=== PATIENT | male | born 1960 | race Caucasian/White ===

== ENCOUNTER 2025-09-19 14:17 | Outpatient (CLI) | payer MEDICARE, SELFPAY ==
--- NOTE | ~2025-09-19 | XR_ITS ---
XR lumbar spine min 4V Indication: Other mechanical complication of implanted electronic neuros Comparison: None Findings: Postsurgical changes with posterior fixation of S1, L5, L4 and L3 with anterior fixation of L5 and S1, disc prostheses are also noted, the hardware is intact. There is a remote compression fracture of L2 with loss of height 50%. Severe loss of disc height at L2-3. Soft tissues unremarkable Impression: No acute abnormality. Reviewed, dictated and finalized at location P. Impression: No acute abnormality.
== END 2025-09-19 14:18 | disposition home or self-care (01) ==
PROVIDERS: PCP Physician Assistant; Visit Provider Physician Assistant
DX: T85.192A Other mechanical complication of implanted electronic neurostimulator of spinal cord electrode (lead), initial encounter (principal)
CPT/HCPCS: 72110